=== PATIENT | male | born 1945 | race Caucasian/White ===

== ENCOUNTER → 2016-08-11 | Outpatient (CLI) | payer OTHER ==
--- NOTE | ~2016-08-11 | US136 ---
[facility] A Service of [facility] RADIOLOGY TEXT RESULTS PATIENT: VIKTORIYA MARTEL LOCATION: CNIV : 47 UNIT #: [id number] AGE: [address]: ROSY GUZMAN DO SEX: M ORDER DR: [id number] [facility] [address] [place], [place] [address] [id number] O MR#: [id number] #: [id number] NAME: VIKTORIYA MARTEL. : 1945 SEX: M STUDY DATE/TIME: 08/11/2016 10:43 UNIT: CNIV ROOM: STUDY DESCRIPTION: US U/L Ext Art Study [facility] Bil Attending Physician: Rosy Guzman D.O. Referring Physician: Rosy Guzman D.O. Ordering Physician: Rosy Guzman D.O. Primary Care Physician: Rosy Guzman D.O. MEDICAL IMAGING REPORT This report is preliminary unless electronic signature is present EXAM Bilateral ankle-brachial indices, 08/11/2016. HISTORY Insulin-dependent diabetes, hypertension, hyperlipidemia, bilateral claudication. FINDINGS Ankle-brachial indices performed bilaterally. All pressure measurements are in mmHg. Right brachial pressure 140, left brachial pressure 132. Distal right lower extremity pressures as follows: Dorsalis pedis at ankle 145, posterior tibial at ankle 157, great toe 95. Ankle-brachial index 1.12. Pulse volume recordings within normal limits. On the left, distal pressures as follows: Posterior tibial at ankle 141, dorsalis pedis at ankle 131, great toe 83. Ankle-brachial index 1.01. Pulse volume recordings within normal limits. IMPRESSION 1. Ankle-brachial indices of 1.12 on right and 1.01 on left are normal values. There appears to be adequate perfusion of the bilateral lower extremities through the level of the ankles at rest. 2. Relatively pronounced pressure gradients between the ankles and great toes bilaterally with toe brachial index of 0.68 on right and 0.59 on left. Findings suggest probably moderate small vessel disease in the bilateral feet distal to the level of the ankles. 3. If it would assist in patient management and if the patient is a candidate further anatomic assessment of lower extremity arteries could be pursued with CT angiography. [facility]. [facility] A Service of [facility] RADIOLOGY TEXT RESULTS PATIENT: VIKTORIYA MARTEL LOCATION: [facility] : 47 UNIT #: [id number] AGE: [address]: ROSY GUZMAN DO SEX: M ORDER DR: Dictated by... Manan Matthews M.D. THIS IS AN ELECTRONICALLY VERIFIED REPORT Manan Matthews M.D. at 08/13/2016 10:54 PM MARTITA/melanie TD: 08/12/2016 11:48 JOB #: [id number] MEDICAL IMAGING REPORT Page 1 of 1 COPY
== END | disposition home or self-care (01) ==
LOC: CNIV 10:23
DX: I73.9 Peripheral vascular disease, unspecified (principal)
CPT/HCPCS: 93922